=== PATIENT | female | born 1990 | race Caucasian/White ===

== ENCOUNTER 2023-09-19 03:34 | Emergency (ER) | payer OTHER, SELFPAY ==
[2023-09-19 03:36] VITALS: BP 123/84; PULSE 76; RESP 16; TEMP 36.2; O2SAT 96; BMI 25.8
--- NOTE | 2023-09-19 04:02 | ED.GENADULT ---
HPI - General Adult General Chief complaint: General Medical Stated complaint: Sinus infection/ swollen eye Time Seen by Provider: 09/19/23 04:02 Source: patient Mode of arrival: ambulatory Limitations: no limitations History of Present Illness HPI narrative: Patient been having sinus problem for last 1 week getting worse with increased headache and facial pain specially on bending since last night noticed redness of the left eyelid. No fever no chills Related Data Previous Rx's Medication Instructions Recorded amoxicillin 875 mg-potassium 1 tab PO BID #20 tabs 09/19/23 clavulanate 125 mg tablet Allergies Allergy/AdvReac Type Severity Reaction Status Date / Time No Known Allergies Allergy Verified 09/19/23 03:43 Review of Systems Review of Systems: Yes all other systems are reviewed and are negative [facility] Social History Social History Substance Use Type: Marijuana Physical Exam ED Vital Signs: Vital Signs - 24 hr 09/19/23 03:36 Temperature 97.1 F Pulse Rate 76 Respiratory Rate 16 Blood Pressure 123/84 Pulse Oximetry 96 Oxygen Delivery Method Room Air BMI result Body Mass Index 25.8 Appearance: Alert. Oriented X3. No acute distress. Eyes: Slight redness of left eyelid EOMI no pain with eyeball movement ENT: Pharynx normal. Oral Mucosa moist maxillary and frontal sinus tender Neck: Normal inspection. Neck supple. CVS: Normal heart rate and rhythm. Pulses normal. Respiratory: No respiratory distress. Equal air entry bilateral, no wheezing/rales/rhonchi Abdomen: Soft and nontender. Skin: Skin warm and dry. Neuro: Oriented X 3. Medical Decision Making Medical Decision Making MDM Narrative: Patient with sinusitis with slight redness of the left eyelid will prescribe oral Augmentin. Clinically which does not have any orbital cellulitis Differential Diagnosis Differential Diagnoses: The differential diagnosis associated with the presentation includes Sinusitis/orbital cellulitis/facial cellulitis Discharge Plan Discharge Clinical Impression: Acute bacterial rhinosinusitis Patient Disposition: Home, Self-Care Instructions: Rhinosinusitis (ED) Additional Instructions: Use steam vapor Antibiotic as prescribed Ibuprofen for pain Prescriptions: New amoxicillin-pot clavulanate 875-125 mg tablet 1 tab PO BID Qty: 20 0RF
[2023-09-19] MEDS: Amoxicillin/Potassium Clav 875 MG TABLET PO (04:19)
== END 2023-09-19 04:22 | disposition home or self-care (01) ==
LOC: HO.ED 04:16
PROVIDERS: Emergency Provider Internal Medicine
DX: J01.90 Acute sinusitis, unspecified (principal); B96.89 Other specified bacterial agents as the cause of diseases classified elsewhere
CPT/HCPCS: 99283; 99284

== ENCOUNTER 2024-06-07 11:31 | Outpatient (AMB) | payer OTHER, SELFPAY ==
--- NOTE | 2024-06-07 11:34 | MHC.OFFWIV ---
Intake Vital Signs 06/07/24 11:36 Height 5 ft 8 in Weight 185 lb BMI 28.1 BP 112/74 Blood Pressure Location Lt brachial Position Sitting Pulse 84 Pulse Source Pulse Oximeter Temp 98.3 F Temp Source Oral Pulse Oximetry (%) 98 Oxygen Delivery Method Room Air Intake Visit Reasons: Positive Covid Test- [phone] Intake Note: pt here c/o nasal congestion, minor cough, headache, body aches, fatigue. Positive covid test. This morning Patient Tobacco Use Status: Never used Tobacco Allergies No Known Allergies Allergy (Verified 06/07/24 11:34) Medication List - Last Reconciled 06/07/24 by Elsie Duran NP bupropion HCl XL 150 mg PO DAILY cholecalciferol (vitamin D3) 25 mcg PO DAILY Do you need a note to return to daycare/school/sports/work: Yes HPI Positive Covid Test- [phone] HPI Details This note is constructed using voice recognition software. While every effort has been made to ensure accuracy, fruit loader errors may have been included. The patient is a 33 year old female who presents to the clinic today with positive COVID tested today. She is complaining of nasal congestion, minor cough, headache, body aches, left-sided ear pain, and fatigue. She denies fever, chills shortness of breath. She would like to be treated with antiviral therapy if possible. [facility] Social History Patient Tobacco Use Status: Never used Tobacco Substance Use Type: Marijuana Review of Systems Const All systems reviewed & are unremarkable except as noted in HPI and below Physical Exam Vital Signs: Last Vital Signs Temp 98.3 F 06/07/24 11:36 Pulse 84 06/07/24 11:36 BP 112/74 06/07/24 11:36 Pulse Ox 98 06/07/24 11:36 Oxygen Delivery Method Room Air 06/07/24 11:36 BMI result Body Mass Index 28.1 Const General: cooperative, healthy appearing, comfortable and no acute distress Orientation/consciousness: patient oriented x3 Limitations: no limitations HEENT Head: Yes normal to inspection Ears: hearing grossly normal bilaterally, external ears normal, TM normal on the right and TM abnormal bulging and erythematous General nose exam: Normal external nose present, Normal nares present and No nasal discharge present Face and sinus: Yes normal facial exam and Yes sinuses nontender Mouth: Normal oral and palatal mucosa present and moist mucous membranes Throat: Yes tonsils normal, Yes uvula midline and Yes posterior oropharynx abnormal (Erythema) Eyes General: appearance normal, both eyes and all related structures Neck Neck: Yes normal visual inspection Resp Effort & Inspection: normal respiratory effort, able to speak in complete sentences, Actively coughing, no respiratory distress, not tachypneic, no tripod positioning and no use of accessory muscles Auscultation: clear to auscultation bilaterally Cardio Jugular venous distension: no JVD Rate: regular rate Rhythm: regular rhythm Heart sounds: S1 normal heart sound present, S2 normal heart sound present, no click, no gallops, no murmurs and no rubs Skin General skin exam: no rashes or lesions noted, elasticity normal and turgor normal Neuro General: patient oriented x3 Extrem General: Yes normal to inspection and Yes no clubbing, cyanosis or edema Assessment & Plan Assessment & Plan (1) Coronavirus infection: Code(s): B34.2 - Coronavirus infection, unspecified Plan: At home positive COVID test, discussed supportive measures including hydration and humidification. Reviewed antiviral therapy, patient requests this to be prescribed. Side effects discussed. Rx sent to requested pharmacy. Quarantine measures reviewed per CDC guidelines. (2) Otitis media: Code(s): H66.90 - Otitis media, unspecified, unspecified ear Qualifiers: Otitis media type: suppurative Chronicity: acute Laterality: left Recurrence: non-recurrent Spontaneous tympanic membrane rupture: without spontaneous rupture Qualified Code(s): H66.002 - Acute suppurative otitis media without spontaneous rupture of ear drum, left ear Plan: Antimicrobial therapy initiated for otitis media on top of coronavirus. Advised NSAIDs for pain relief. Follow up as needed with worsening or failure to resolve. Plan See above for full details and plan. Medications: New nirmatrelvir-ritonavir 300 mg (150 mg x 2)-100 mg (Paxlovid) take TWO 150 mg tablets of nirmatrelvir with ONE 100 mg tablet of ritonavir twice daily for 5 days PO. 30 ea 0RF amoxicillin-pot clavulanate 875-125 mg 1 tab PO BID 7 days 14 tabs 0RF Discontinued amoxicillin-pot clavulanate 875-125 mg Discontinued Reason: Patient Completed Course 1 tab PO BID 20 tabs 0RF Coding Level of Care Code Est Pt Level 3 (23054) Diagnoses Coronavirus infection B34.2 Non-recurrent acute suppurative otitis media of left ear without spontaneous rupture of tympanic membrane H66.002 Otitis media type: suppurative Chronicity: acute Laterality: left Recurrence: non-recurrent Spontaneous tympanic membrane rupture: without spontaneous rupture
[2024-06-07 11:36] VITALS: BP 112/74; PULSE 84; TEMP 36.8; O2SAT 98; BMI 28.1
== END 2024-06-07 12:50 | disposition home or self-care (01) ==
PROVIDERS: Visit Provider Registered Nurse
DX: B34.2 Coronavirus infection, unspecified (principal); H66.002 Acute suppurative otitis media without spontaneous rupture of ear drum, left ear
CPT/HCPCS: 99213

== ENCOUNTER 2025-03-21 10:47 | Outpatient (AMB) | payer OTHER, SELFPAY ==
--- NOTE | 2025-03-21 10:53 | A.OFFPC_ITS ---
Vital Signs 03/21/25 10:59 Height 5 ft 8 in Weight 200 lb 2 oz BMI 30.4 BP 96/72 Blood Pressure Location Rt brachial Position Sitting Respiration 14 Pulse 88 Pulse Source Pulse Oximeter Pulse Oximetry (%) 98 Oxygen Delivery Method Room Air Intake Visit Reasons: est care/referrals (plz keep appt) Intake Note: New patient visit. Requesting referral to dermatology. Hand surgeon for carpal tunnel. 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 Previously was seeing [facility]-insurance stopped covering. Then transferred to Dr Mathis BH: On wellbutrin 150mg daily. Previously on adderall but heightened anxiety. Would like to get neuropsych testing, perhaps autism evaluation. Has really bad PMDD. CTS: Using braces sleeping but continue to bother her throughout the day. This has been ongoing for years Allergic rhinitis. ROS see HPI PHYSICAL EXAM: GENERAL: Alert and oriented x 3. NAD EYES: EOMI. Anicteric. HENT: Moist mucous membranes. No scleral icterus. No cervical lymphadenopathy. LUNGS: Clear to auscultation bilaterally. CARDIOVASCULAR: Regular rate and rhythm. No murmur. No JVD. ABDOMEN: Soft, non-tender +bs EXTREMITIES: No edema. Non-tender. SKIN: No rashes or lesions. Warm. NEUROLOGIC: No focal neurological deficits. CN II-XII grossly intact PSYCHIATRIC: Cooperative. 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 1. Little interest or pleasure in doing things: several days 2. Feeling down, depressed, or hopeless: several days 3. Trouble falling or staying asleep, or sleeping too much: several days 4. Feeling tired or having little energy: several days 5. Poor appetite or overeating: several days 6. Feeling bad about yourself - or that you are a failure or have let yourself or your family down: more than half the days 7. Trouble concentrating on things, such as reading the newspaper or watching television: nearly every day 8. Moving or speaking so slowly that other people could have noticed. Or the opposite - being so fidgety or restless that you have been moving around a lot more than usual: several days 9. Thoughts that you would be better off or of hurting yourself in some way: several days Total score: 12 Source: Developed by Drs. Chucky Wade, Euefmia Henriquez, Bennett Delacruz and colleagues, with an educational [place] from [employer]. Thrive Questionnaire I am a: Patient What is your living situation today?: I have a steady place to live Within the past 12 months, did the food you bought not last and you didn't have the money to get more?: Never true Within the past 12 months, did you worry whether your food would run out before you got money to buy more?: Never true Do you have trouble paying for medicines?: No Do you have trouble getting transportation to medical appointments?: No Do you have trouble paying your heating and electricity bill?: No Do you have trouble taking care of your child, family member or friend?: No Do you have trouble with day-to-day activities such as bathing, preparing meals, shopping, managing finances, etc.?: No Are you currently unemployed and looking for a job?: No Are you interested in more education?: No Please select the resources that you would like help with: None Currently or been in a relationship where the following occur: I choose not to answer THRIVE Score: 0 AUDIT C Alcohol Use Questionnaire (AUDIT-C) 1. How often do you have a drink containing alcohol?: Monthly or less 2. How many drinks containing alcohol do you have on a typical day when you are drinking?: 1 or 2 3. How often do you have six or more drinks on one occasion?: Never Total Score: 1 GT-7 AMB Questionnaire GT-7 Feeling nervous, anxious, or on edge: 2 = More than half the days Not being able to stop or control worryin = More than half the days Worrying too much about different things: 2 = More than half the days Trouble relaxin = More than half the days Being so restless that it is hard to sit still: 2 = More than half the days Becoming easily annoyed or irritable: 2 = More than half the days Feeling afraid as if something awful might happen: 1 = Several days Total GT-7 score (0-4 normal; 5-9 mild; 10-14 moderate; 15-21 severe): 13 Source: Developed by Drs. Chucky Wade, Eufemia Henriquez, Bennett Delacruz and colleagues, with an educational [place] from [employer]. Physical exam (Primary Care) Vital Signs: Last Vital Signs Pulse 88 03/21/25 10:59 Resp 14 03/21/25 10:59 BP 96/72 03/21/25 10:59 Pulse Ox 98 03/21/25 10:59 Oxygen Delivery Method Room Air 03/21/25 10:59 BMI result Body Mass Index 30.4 Tobacco/Smoking Status: Tobacco use Status Tobacco use date assessed 03/21/25 03/21/25 11:03 Patient Tobacco Use Status Former Tobacco user 03/21/25 11:03 e-Cigarette/Vaping Use Never Used 03/21/25 11:03 PHQ-9: PHQ-9 Score PHQ-9: Total score 12 03/21/25 11:08 Currently or been in a relationship where the following occur: I choose not to answer Coding Level of Care Code New Pt Level 4 (62628) Diagnoses PMDD (premenstrual dysphoric disorder) F32.81 Bilateral carpal tunnel syndrome G56.03 Laterality: bilateral Anxiety F41.9 Screening for metabolic disorder Z13.228 Attention deficit R41.840 Assessment & Plan Assessment & Plan (1) PMDD (premenstrual dysphoric disorder): Code(s): F32.81 - Premenstrual dysphoric disorder Category: Medical (2) Carpal tunnel syndrome: Code(s): G56.00 - Carpal tunnel syndrome, unspecified upper limb Category: Medical Qualifiers: Laterality: bilateral Qualified Code(s): G56.03 - Carpal tunnel syndrome, bilateral upper limbs (3) Anxiety: Code(s): F41.9 - Anxiety disorder, unspecified Category: Medical (4) Screening for metabolic disorder: Code(s): Z13.228 - Encounter for screening for other metabolic disorders Category: Medical (5) Attention deficit: Code(s): R41.840 - Attention and concentration deficit Category: Medical Plan 34 yo to establish care BH-referral to psychiatry CTS-referral to orthopedics. They have placed orders for EMG Labs ordered Referral to dermatology for HS Orders: Orders Complete Blood Count Auto Diff 03/21/25 Elisabeth Higuera MD F32.81 - Premenstrual dysphoric disorder, F41.9 - Anxiety disorder, unspecified, L73.2 - Hidradenitis suppurativa, Z13.228 - Encounter for screening for other metabolic disorders Lyme IgG/IgM w/reflex to WB 03/21/25 Elisabeth Higuera MD F32.81 - Premenstrual dysphoric disorder, F41.9 - Anxiety disorder, unspecified, L73.2 - Hidradenitis suppurativa, Z13.228 - Encounter for screening for other metabolic disorders Vitamin B12 and Folate 03/21/25 Elisabeth Higuera MD F32.81 - Premenstrual dysphoric disorder, F41.9 - Anxiety disorder, unspecified NE nerve conduction velocity 03/21/25 HELEN Khan R20.0 - Anesthesia of skin, R20.2 - Paresthesia of skin Comprehensive Met. Panel 03/21/25 Elisabeth Higuera MD F32.81 - Premenstrual dysphoric disorder, F41.9 - Anxiety disorder, unspecified, L73.2 - Hidradenitis suppurativa, Z13.228 - Encounter for screening for other metabolic disorders Lipid Panel 03/21/25 Elisabeth Higuera MD F32.81 - Premenstrual dysphoric disorder, F41.9 - Anxiety disorder, unspecified, L73.2 - Hidradenitis suppurativa, Z13.228 - Encounter for screening for other metabolic disorders TSH reflex Free T4 03/21/25 Elisabeth Higuera MD F32.81 - Premenstrual dysphoric disorder, F41.9 - Anxiety disorder, unspecified, L73.2 - Hidradenitis suppurativa, Z13.228 - Encounter for screening for other metabolic disorders Vitamin D 25-OH (D2 and D3) 03/21/25 Elisabeth Higuera MD F41.9 - Anxiety disorder, unspecified, Z13.228 - Encounter for screening for other metabolic disorders NE electromyogram (EMG) 03/21/25 HELEN Khan R20.0 - Anesthesia of skin, R20.2 - Paresthesia of skin Referrals Hand Surgery Referral Elisabeth Higuera MD G56.00 - Carpal tunnel syndrome, unspecified upper limb Dermatology Referral Elisabeth Higuera MD L73.2 - Hidradenitis suppurativa 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
[2025-03-21 10:59] VITALS: BP 96/72; PULSE 88; RESP 14; O2SAT 98; BMI 30.4
--- OUTSIDE RECORDS SUMMARY | 2025-03-21 12:13 | XMS_ITS | Encounter Summary ---
Author Organization [facility] Address [address] [place] [id number] Phone Care Team Providers Care Personnel Arbitrator Name Role Phone Marian Samano MD Primary Care Provider [phone] Encounter Details Date Type Department Care Team (Late st Contact Info) Description 06/25/2017 Conversion Encounter [facility] [place] [address] [place] [address] Social History Tobacco Use Types Packs/Day Years Used Date Smoking Tobacco: Never Assessed Comments Unknown Sex and Gender Information Value Date Recorded Sex Assigned at Not on file Legal Sex Female 4:31 PM EDT Gender Identity Not on file Sexual Orientation Not on file documented as of this encounter Plan of Treatment Not on file documented as of this encounter Visit Diagnoses Not on filedocumented in this encounter Care Teams Personnel Arbitrator Relationship Specialty Start Date End Date Marian Samano MD [address] [place] [address] PCP - General 06/19/17 06/16/23 documented as of this encounter
--- OUTSIDE RECORDS SUMMARY | 2025-03-21 12:13 | XMS_ITS | Data Portability ---
Author Organization [place] - [facility], Main Office Address [address] [place] [id number] Assessment No assessment recorded. Plan of Treatment Reminders Order Date Submit Date Provider Last Modified By Organization Details Last Modified Time Details Appointments None recorded. Lab CBC w/ auto diff 2023 [facility], [address] [place] [address], [place] [address], [place], [address], 5 05:01:24 CMP, serum or plasma 2023 [facility], [address] [place] [address], [place] [address], [place], [address], 5 05:01:23 HbA1c (hemoglobi n A1c), blood 2023 [facility], [address] [place], [address], 5 05:01:23 CT + NG RNA, PCR, unspecifie d specimen 2023 [facility], [address] [place], [address], 5 05:01:23 RPR (rapid plasma reagin), serum 2023 [facility], [address] [place], [address], 5 05:01:23 HIV 1+2 AB + HIV 1 p24 Ag, qualitativ e immunoassa y, serum 2023 [facility], [address] [place], [address], 5 05:01:24 TSH, ultra-sens itive, serum 2023 [facility], [address] [place], [address], 5 05:01:24 HBsAg (hepatitis B surface Ag), serum 2023 [facility], [address] [place], [address], 5 05:01:23 hepatitis C virus Ab, serum 2023 [facility], [address] [place], [address], 5 05:01:23 gamma-glut amyl transferas e (ggt), serum 2023 [facility], [address] [place], [address], 5 05:01:24 lipid panel, serum 2023 [facility], [address] [place], [address], 5 05:01:23 microalbum in/creatin ine, mass ratio, urine 2023 [facility], [address] [place], [address], 5 05:01:24 vitamin D, 25-hydroxy , total, serum 2023 [facility], [address] [place], [address], 5 05:01:24 vitamin B12, serum 2023 [facility], [address] [facility], [place], [address], 5 05:01:24 H pylori urea breath test, co2 infrared 2023 [facility] Main [facility], [address] [facility], [address], [place], [address], 5 05:01:23 Referral dermatolog ist referral - Hidradenit is suppurativ a 2023 TAHMINA Gibbs MD, [address] [facility] [place], [address], 4 04:21:58 hand surgeon referral - B hand paresthesi as 2023 [facility], [address], [address], [place], [address], 4 17:12:18 neurologis t referral - ADHD 2023 reji Flores MD, [address] [facility], [address], [place], [address], 5 16:04:07 Procedures None recorded. Surgeries None recorded. Imaging None recorded. Medication Orders clindamyci n 1 % topical gel 2023 [facility][id number], [address] [place], [address], 4 13:36:06 mupirocin 2 % topical ointment 2023 [facility][id number], [address] [place], [address], 4 13:36:05 Wellbutrin XL 150 mg 24 hr tablet, extended release 2023 024 [facility] #[id number], [address] [facility] [place], [address], 13:36:05 Patient TargetsNo targets recorded. Patient InstructionsNo instructions recorded. 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 H idradenitis suppurativa Hidradenitis suppurativa Referring Physician: Mayo Velasquez, Internal Medicine, Encounter Date: 09/01/2024 Neurologist Referral for Att ention deficit hyperactivity disorder, predominantly inattentive type ADHD Referring Physician: Mayo Velasquez, Internal Medicine, Encounter Date: 09/01/2024 Hand Surgeon Referral for Pa resthesia of bilateral hands B hand paresthesias Referring Physician: Mayo Velasquez, Internal Medicine, Encounter Date: 09/01/2024 Problems Name Problem SNOMED Code Status Onset Date Resolution Date Notes Provider Name and Address Organization Details Recorded Time Attention deficit hyperactiv ity disorder, predominan tly inattentiv e type 37978617 Active 2023 Mayo Velasquez, [facility] [address], [place], [address] , [place], [employer] 13:29:33 Generalize d anxiety disorder 23995402 Active 2023 Mayo Velasquez DO [facility] [address], [place], [address] , [place], [employer] 13:29:34 Tattoo of skin 553287692687 Active 2023 Mayo Velasquez [address] [employer] [address], [place], [address] , [place] 4 13:32:45 Depression screening Active 2023 Mayo Velasquez DO [address], [place], [address] , [place], [employer] 13:32:47 Tobacco use cessation education Active 2023 Mayo Velasquez DO [address], [place], [address] , [employer] 13:32:49 Body mass index 25-29 - overweight 907375861 Active 2023 Mayo Velasquez, [address],[facility] [address], [place], [address] , [employer] 4 13:33:14 Paresthesi a of bilateral hands 450453413 Active 2023 Mayo Velasquez, [address] [facility] [address], [place], [address] , [employer] 13:38:37 Problem Notes None recorded. Procedures Surgical History Date Name Laterality Status Provider Name and Address Organization Details Recorded Time extraction of wisdom tooth completed VINCENT DUMONT [employer] 09/01/2024 12:11:20 Imaging Results None recorded. Procedure Notes None recorded. Medical Equipment None Reported. Allergies No known drug allergies Medications Name Sig Start Date Stop Date Status Note LastModified by Organization Details LastModified Time clindamycin 1 % topical gel APPLY THIN COAT TO AFFECTED AREA TWICE A DAY active Not Available Not Available No t Available mupirocin 2 % topical ointment APPLY A SMALL AMOUNT TO AFFECTED AREA 3 TIMES A DAY active Not Available Not Available No t Available amoxicillin 875 mg-potassium clavulanate 125 mg tablet TAKE 1 TABLET BY MOUTH TWICE A DAY FOR 7 DAYS active Not Available Not Available No t Available bupropion HCl XL 150 mg 24 hr tablet, extended release Take 1 tablet every day by oral route. active Not Available Not Available No t Available Paxlovid 300 mg (150 mg x 2)-100 mg tablets in a dose pack TAKE 2 TABLETS (NIRMATREL VIR) AND TAKE 1 TABLET (RITONAVIR ) BY MOUTH TWICE A DAY FOR 5 DAYS active Not Available Not Available No t Available Vitals Date Recorded Body height Respiratory rate Body temperature Heart rate Body mass index (BMI) Body weight Oxygen saturation Oxygen saturation in Arterial blood by Pulse oximetry Systolic blood pressure Diastolic blood pressure Provider Name and Address Organization Details Last Updated DateTime 4 172.72 cm 12 /min 98 [degF] 86 /min 29.8 kg/m2 04211.1 g 100 % 100 % 110 mm[Hg] 82 mm[Hg] VINCENT DUMONT [place] [facility] 12:05:52 Social History Question Answer Notes LastModified by Organizat ion Details LastModified Time Tobacco Smoking Status Former Smoker SHANNON VINCENT munoz [employer] 09/01/2024 12:09:04 Do You Have An Advance Directive? No [email or web address] Information n ot available 09/01/2024 If You Are , What Was Your Level Of Alcohol Consumption Prior To ? None [email or web address] Information not available 09/01/2024 Are You Blind Or Do You Have Difficulty Seeing? Yes [email or web address] Information n ot available 09/01/2024 Is Blood Transfusion Acceptable In An Emergency? Yes [email or web address] Information not available 09/01/2024 What Is Your Level Of Caffeine Consumption? Moderate [email or web address] Information not available 09/01/2024 What Type Of Central Service Supply Distributor Do You Use? None [email or web address] Information not available 09/01/2024 In The 14 Days Before Symptom Onset, Have You Had Close Contact With A Laboratory-confirm ed COVID-19 While That Case Was Ill? No [email or web address] Information n ot available 09/01/2024 In The 14 Days Before Symptom Onset, Have You Had Close Contact With A Person Who Is Under Investigation For COVID-19 While That Person Was Ill? No [email or web address] Information not available 09/01/2024 Have You Been To An Area Known To Be High Risk For COVID-19? No [email or web address] Information not available 09/01/2024 Are You Deaf Or Do You Have Serious Difficulty Hearing? No [email or web address] Information not available 09/01/2024 What Type Of Diet Are You Following? REGULAR [email or web address] Information n ot available 09/01/2024 Which Illicit Or Recreational Drugs Have You Used? MJ [email or web address] Information not available 09/01/2024 Have You Processed Blood Or Body Fluids From An Ebola Virus Disease Patient Without Appropriate PPE? No ocdtshiiee000 Information not available 09/01/2024 Do You Reside In Or Have You Traveled To An Area Where Ebola Virus Transmission Is Active? No yriuivrefy484 Information not available 09/01/2024 What Is The Highest Grade Or Level Of School You Have Completed Or The Highest Degree You Have Received? [id number] omxsnyopge908 Information not available 09/01/2024 Have There Been Any Changes To Your Family Or Social Situation? No [email or web address] Information no t available 09/01/2024 What Is The Fluoride Status Of Your Home? Unknown uedpatfsay593 Information not available 09/01/2024 Are There Any Guns Present In Your Home? No znfnbdfsje487 Information not available 09/01/2024 Have You Recently Or Are You Planning To Travel To An Area With Zika Virus? No Information not available 09/01/2024 Do You Use Insect Repellent Routinely? No ibafmvewnm404 Information not available 09/01/2024 Do You Have Any Bleeding Gums, Pain In Your Teeth And/or Gums, Gasp Between Your Teeth, Loose Teeth , Dry Mouth, Bad Taste Or Smell In Your Mouth Or Any Other Problems In Your Mouth? YES / NO No [email or web address] Information not available 09/01/2024 Have You Seen A Dentist In The Past 12 Months? YES / NO No mggnzpechy845 Information not available 09/01/2024 Do You Smoke? YES / NO Yes [email or web address] Informat ion not available 09/01/2024 What Was The Date Of Your Most Recent Tobacco Screening? 09/01/2024 pcuxbmqghq277 Information not available 09/01/2024 How Many Children Do You Have? 1 fxztorzsmu986 Information not available 09/01/2024 Do You Have Any Pets? Yes Cat [email or web address] Information not available 09/01/2024 What Is Your Relationship Status? Single [email or web address] Information not available 09/01/2024 Do You Use Your Seat Belt Or Car Seat Routinely? Yes qeechvawdd532 Information not available 09/01/2024 Are You Sexually Active? No lnosgsxjgv862 Information not available 09/01/2024 Do You Have Smoke And Carbon Monoxide Detectors In Your Home? Yes wsqnhiehms173 Information not available 09/01/2024 At What Age Did You Start Smoking Tobacco? 15 yvvlwcjtla351 Information not available 09/01/2024 Are You Passively Exposed To Smoke? No pschrenamg341 Information no t available 09/01/2024 How Much Tobacco Do You Smoke? No hxqerbmxld569 Information not available 09/01/2024 Do You Use Sunscreen Routinely? No [email or web address] Information not available 09/01/2024 Has Tobacco Cessation Counseling Been Provided? No xuutnrzxnj930 Information not available 09/01/2024 Have You Used IV Drugs? No vazpnumzdn906 Information not available 09/01/2024 Sex: Female Functional Status Question Answer Note LastModified by Organizat ion Details LastModified Time Do you use any illicit or recreational drugs? Yes Information not available 09/01/2024 Do you or have you ever used any other forms of tobacco or nicotine? No Information not available 09/01/2024 What is your level of alcohol consumption? None Information not available 09/01/2024 Are you currently employed? Yes fganzcfrlx521 Information not available 09/01/2024 Do you have difficulty walking or climbing stairs? No argkhbuvjm883 Information not available 09/01/2024 Do you have transportation difficulties? No Information not available 09/01/2024 Are you able to walk? YESWOREST qaudmloaan476 Information not available 09/01/2024 Do you have difficulty doing errands alone? No kocwmuymge471 Information not available 09/01/2024 Are you able to care for yourself? 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 No prnjhatmny853 Information not available 09/01/2024 What is your exercise level? Moderate zufzdlqqro912 Information not available 09/01/2024 Mental Status Question Answer Note LastModified by Organizat ion Details LastModified Time Do you feel stressed (tense, restless, nervous, or anxious, or unable to sleep at night)? XX2087-7 [email or web address] Information not available 09/01/2024 Do you have difficulty concentrating, remembering or making decisions? No [email or web address] Information no t available 09/01/2024 Family History Relationship Description Onset Age of this Age Resolved Age Notes LastModified by Organization Details LastModified Time Mother Diabetes mellitus 59 [email or web address] Not available 12:07:37 Mother Hypertensive disorder 59 [email or web address] Not available 12:07:56 Notes:Father passed 57 due t o pancreas cancer, also had bipolar disorder. Medical History Condition Response Coronary Artery Disease N Gout N Other N Blood Diseases N Kidney Stones N Hyperthyroidism N Blood Transfusion N Breast Cancer N Hypothyroidism N Depression N COPD N Lung Disease N Defects or Inherited Disease N Developmental or Behavioral Disorders N Breast Problem N Difficulty Swallowing N Anesthesia Complications N Meniere's disease N Anxiety Disorder Y Muscle, Joint, or Bone Problems N Obesity N Vision or Eye Problems N Arthritis N Polyps N Infertility N Mental Disorder N Cancer N Varicosities N Stroke N Endometriosis N Bladder or Kidney Problems N High Cholesterol N Liver Disease N Headaches N Fibromyalgia N Kidney Disease N Allergies/Hayfever N Heart Problems N Ear or Hearing Problems N Hospitalizations N Thyroid Problems N GI Problems N ADD/ADHD Y Skin Problems N Eating Disorder N Anemia N MRSA exposure N Constipation N Mental Illness N Ovarian Cancer N Diabetes N Bedwetting N Seizures/Epilepsy N Tuberculosis N AIDS/HIV N Congestive Heart Failure (CHF) N Eczema N Diverticulitis N Abuse/Domestic Violence N Asthma N Reflux/GERD N Hepatitis N Heart Disease N Pulmonary Embolism N Chronic Ear Infections N Pre-Eclampsia N Hypertension N Chicken Pox N Autism Spectrum Disorder (ASD) N Osteoporosis N Thrombophilias N Gynecological History Statement/Question Response Date of Last Mammogram Flow Light Date of LMP 08/12/2024 Duration of Flow (days) 4 Current Control Method IUD Age at Menarche 10 Age at First Child 25 Date of Last Colonoscopy Frequency of Cycle (Q days) 28 Most Recent Bone Density Date of Last Pap Smear Colonoscopy Obstetrics History GPAL:G 1 P 1 0 0 1 Type Value Full Term 1 Living 1 Total 1 Immunizations Vaccine Type Date Status Note Provider Joseph mello and Address Organization Details Recorded Time Tdap 04/21/2016 completed VINCENT munoz [place] - [employer], [id number] 08/31/2024 21:56:43 influenza, unspecified formulation 12/04/2016 completed VINCENT munoz [facility] 08/31/2024 21:57:06 influenza, unspecified formulation 09/30/2021 completed VINCENT munoz, [place] [facility] 08/31/2024 21:57:16 SARS-COV-2 (COVID-19) vaccine, UNSPECIFIED 02/01/2021 completed VINCENT DUMONT null, [facility] 08/31/2024 21:57:42 SARS-COV-2 (COVID-19) vaccine, UNSPECIFIED 02/22/2021 completed VINCENT DUMONT null, [facility] 08/31/2024 21:57:50 SARS-COV-2 (COVID-19) vaccine, UNSPECIFIED 09/30/2021 completed VINCENT munoz, [place] [facility] 08/31/2024 21:58:00 Past Encounters Encounter ID Performer Location Encounter Start Date Encounter Closed Date Diagnosis/Indication Diagnosis SNOMED-CT Code Diagnosis ICD10 Code Diagnosis Note [id number] Mayo Velasquez, Main Office [address] [place] [id number] 09/01/2024 11:52:58 09/01/2024 13:40:41 Attention deficit hyperactivity disorder, predominantly inattentive type 51449961 F90.0 Generalize d anxiety disorder 86851343 F41.1 Body mass index 25-29 - overweight 680580441 Z68.25 Adult [facility] th examination 541761148 Z00.01 cpe labs Active or passive immunization 547207033 Z23 Tobacco us e cessation education 758302884 Z71.6 Depression screening 171 107679 Z13.31 Tattoo of skin 178959808 1 02 L81.8 Hidradenit is suppurativa 51301417 L73.2 Paresthesi a of bilateral hands 065672027 R20.2 Health Concerns Section Related Observation LastModified by Organization Detai ls LastModified Time None Recorded Concern Status LastModified by Organization Details LastModified Time None Recorded Advance Directives Directive N: Payers Encounter Date Sequence Insurance Name Policy Number Policy Tineo Covered Member ID Tineo Member ID Guarantor Name 09/01/[address] [facility] - [facility] [place] ([place]) [id number] Araceli Avila [id number] 1 Araceli Avila Notes Date Note Type Note Provider Name and Address Organization Details Recorded Time 09/01/2024 text/html 33yo F, here today for a new patient office visit. 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 Pt c/o numbness of nadya hands x several years. Mayo Velasquez, DO [address] [facility],[address], [place], [address], [facility] - [facility] 09/01/2024 13:38:49 OBGyn Episode No OBEpisode recorded.
--- OUTSIDE RECORDS SUMMARY | 2025-03-21 12:13 | XMS_ITS | Encounter Summary ---
Author Organization [facility] Address [address] [place] [address] Phone Care Team Providers Care Financial Center Manager Name Role Phone Marian Samano MD Primary Care Provider Encounter Details Date Type Department Care Team (Late st Contact Info) Description 10/23/2015 Documentation [facility] [place] [facility] [address] [place] [address] Family Medicine, Physician [address] [place], [place] [phone] Social History Tobacco Use Types Packs/Day Years [...] on filedocumented in this encounter Care Teams Financial Center Manager Relationship Specialty Start Date End Date Marian Samano MD [address] [place] [address] [place] [address] PCP - General 06/19/17 06/16/23 documented as of this encounter
--- OUTSIDE RECORDS SUMMARY | 2025-03-21 12:13 | XMS_ITS | Clinical Summary ---
Author Organization [facility] Address [address] [place] [address] Phone Care Team Providers Care Steel Handler Name Role Phone Unavailable Primary Care Provider Unavailabl e Immunizations Immunization Administration Dates Next Due DTP 04/22/1994, 1,05/18/1989,1988,01/07/1989 Hep B, ped/adol 04/27/2002,12/02/2001,07/01/2001 Hib (PRP-T) 04/12/1991 MMR 11/28/1999,03/11/1990 OPV 04/22/1994, 1,03/04/1989,1988 Td (adult) (MBL), 2 Lf tetan us toxoid, PF, adsorbed 11/28/1999 Family History Relation Name Status Comments Father Alive Father: Allergi es Half-Brother Alive Half brother (P ): Alive and well Mother Alive Mother: Hyperte nsion Social History Tobacco Use Types Packs/Day Years Used Date Smoking Tobacco: Never Assessed Comments Unknown Sex and Gender Information Value Date Recorded Sex Assigned at Not on file Legal Sex Female 4:31 PM EDT Gender Identity Not on file Sexual Orientation Not on file Plan of Treatment Health Maintenance Due Date Last Done Comments DTaP,Tdap,and Td Vaccines (6 - Tdap) 11/29/1999 11/28/1999, 04/22/1994, 04/12/1991, Additional history exists Varicella Vaccines (1 of 2 - 13+ 2-dose series) 2001 Influenza Vaccines (#1) 2024 COVID-19 Vaccine ( - season) 2024 HIB Vaccines Completed 04/12/1991 IPV Vaccines Completed 04/22/1994, 02/1991, 03/04/1989, Additional history exists MMR Vaccines Completed 11/28/1999, 03/11/1990 Hepatitis B Vaccines Completed 04/27/2002, 12/02/2001, 07/01/2001 HPV Vaccines Aged Out No longer eligi ble based on patient's age to complete this topic Hepatitis A Vaccines Aged Out No long er eligible based on patient's age to complete this topic Men B Vaccine Aged Out No longer elig ible based on patient's age to complete this topic Meningococcal Vaccine Aged Out No sherry kandy eligible based on patient's age to complete this topic Pneumococcal Vaccine Aged Out No long er eligible based on patient's age to complete this topic
== END 2025-03-21 11:29 | disposition home or self-care (01) ==
LOC: HO.HMCFM 10:47
PROVIDERS: PCP Internal Medicine; Visit Provider Internal Medicine
DX: F32.81 Premenstrual dysphoric disorder (principal); G56.03 Carpal tunnel syndrome, bilateral upper limbs; F41.9 Anxiety disorder, unspecified; Z13.228 Encounter for screening for other metabolic disorders; R41.840 Attention and concentration deficit

== ENCOUNTER → 2025-03-21 10:47 | Outpatient (BNVA) | payer OTHER, SELFPAY | PROVIDERS: PCP Internal Medicine; Visit Provider Internal Medicine | DX: F32.81 Premenstrual dysphoric disorder (principal); G56.03 Carpal tunnel syndrome, bilateral upper limbs; F41.9 Anxiety disorder, unspecified | CPT/HCPCS: 99202 ==

== ENCOUNTER 2025-03-21 11:41 | Outpatient (REF) | payer OTHER, SELFPAY ==
--- OUTSIDE RECORDS SUMMARY | 2025-03-21 13:10 | XMS_ITS | Encounter Summary ---
Author Organization [facility] Address [address] [place] [address] Phone Care Team Providers Care Web Solutions Architect Name Role Phone Marian Samano MD Primary Care Provider Encounter Details Date Type Department Care Team (Late st Contact Info) Description 06/25/2017 Conversion Encounter [facility] [address] [place] [address] Social History Tobacco Use Types Packs/Day Years [...] on filedocumented in this encounter Care Teams Web Solutions Architect Relationship Specialty Start Date End Date Marian Samano MD [address] [place] [address] PCP - General 06/19/17 06/16/23 documented as of this encounter
--- OUTSIDE RECORDS SUMMARY | 2025-03-21 13:10 | XMS_ITS | Clinical Summary ---
Author Organization [facility] Address [address] [place] [address] Phone Care Team Providers Care Assembly Stock Supervisor Name Role Phone Unavailable Primary Care Provider [...]
--- OUTSIDE RECORDS SUMMARY | 2025-03-21 13:10 | XMS_ITS | Encounter Summary ---
Author Organization [facility] Address [address] [place] [address] Phone Care Team Providers Care Technology Program Manager Name Role Phone Marian Samano MD Primary Care Provider [phone] Encounter Details Date Type Department Care Team (Late st Contact Info) Description 10/23/2015 Documentation [facility] [place] Family Medicine [address] [place] [address] Family Medicine, Physician [address] [place], [place] [phone] Social History Tobacco Use Types Packs/Day Years [...] on filedocumented in this encounter Care Teams Technology Program Manager Relationship Specialty Start Date End Date Marian Samano MD [address] [place] [address] [place] [address] PCP - General 06/19/17 06/16/23 documented as of this encounter
[2025-03-21 14:14] LABS: MANUAL DIFF FLAG NO
[2025-03-21 14:20] LABS: Basophils Absolute Auto 0.1 X10*3/uL (0.0-0.2); Eosinophils Absolute Auto 0.2 X10*3/uL (0.0-0.4); Eosinophils Percent Auto 3.3 % (0-4); Hematocrit 42.2 % (37.0-47.0); Hemoglobin 14.5 g/dl (12.0-16.0); Imm Gran Abs Auto 0.01 X10*3/uL (0.00-0.03); Imm Gran Pct Auto 0.2 % (0.0-0.4); Lymphocytes Absolute Auto 2.7 X10*3/uL (1.2-4.9); Lymphocytes Percent Auto 43.2 % (20-40); Mean Corpuscular HGB Conc 34.4 g/dl (31.0-35.0); Mean Corpuscular Hemoglobin 31.6 pg (27.0-33.0); Mean Corpuscular Volume 91.9 fL (80.0-98.0); Mean Platelet Volume 9.7 fL (9.4-12.3); Monocytes Absolute Auto 0.5 X10*3/uL (0.1-1.2); Monocytes Percent Auto 7.3 % (2-11); Neutrophils Absolute Auto 2.8 x10*3/uL (2.0-8.3); Platelet Count 257 X10*3/uL (160-400); Red Blood Count 4.59 X10*6/uL (4.20-5.50); Red Cell Distribution Width 12.9 % (11.0-16.0); White Blood Count 6.3 X10*3/uL (4.8-10.8)
[2025-03-21 14:46] LABS: Alanine Aminotransferase 36 U/L (0-31); Albumin Level 4.4 g/dL (3.5-5.0); Alkaline Phosphatase 58 U/L (39-117); Anion Gap 9 (12-20); Aspartate Amino Transferase 32 U/L (5-31); Bilirubin Total 0.8 mg/dL (0.0-1.0); Blood Urea Nitrogen 8 mg/dL (9-16); Calcium 9.1 mg/dL (8.4-10.2); Carbon Dioxide 27 mmol/L (22-29); Chloride 108 mmol/L (96-108); Cholesterol 142 mg/dL (<200); Estimated Glomerular Filt Rate > 60; Glucose Random 82 mg/dL (60-115); HDL Cholesterol 47 mg/dL (>40); LDL Cholesterol Calculated 81 mg/dL (<100); Potassium 4.4 mmol/L (3.3-5.1); Sodium 140 mmol/L (135-145); Triglycerides 73 mg/dL (<150)
[2025-03-21 14:53] LABS: TSH reflex Free T4 0.73 uIU/mL (0.32-4.0)
[2025-03-21 15:19] LABS: Folate 10.4 ng/mL (> or = 4.0); Vitamin B12 549 pg/mL (200-900)
[2025-03-22 05:28] LABS: Lyme Abs Screen <0.90 index
[2025-03-26 21:28] LABS: Vitamin D 25-OH, D2 <4 ng/mL; Vitamin D 25-OH, D3 39 ng/mL; Vitamin D 25-OH, Total 39 ng/mL (30-100)
== END 2025-03-21 11:42 | disposition home or self-care (01) ==
LOC: HO.WFDLDS 11:41
PROVIDERS: Visit Provider Internal Medicine
DX: F41.9 Anxiety disorder, unspecified (principal); F32.81 Premenstrual dysphoric disorder; L73.2 Hidradenitis suppurativa; Z13.228 Encounter for screening for other metabolic disorders
CPT/HCPCS: 36415; 80053; 80061; 82306; 82607; 82746; 84443; 85025; 86617; 86618

== ENCOUNTER 2025-05-09 08:12 | Outpatient (REF) | payer OTHER, SELFPAY ==
--- NOTE | 2025-05-09 08:16 | EMG_ITS ---
FINDINGS: Bilateral median and ulnar motor and sensory studies were performed. Bilateral radial sensory studies were performed, and bilateral median and lateral antecubital brachial sensory studies were performed. Paraspinal muscles were tested with a needle. 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 Please see the attached neurophysiology report for detail MD CARL Alba/JOSE ANGEL / [id number] MTDD
--- OUTSIDE RECORDS SUMMARY | 2025-05-09 08:18 | XMS_ITS | Encounter Summary ---
Author Organization [facility] Address [address] [place] [address] Phone Care Team Providers Care Client Success Specialist Name Role Phone Marian Samano MD Primary Care Provider [phone] Encounter Details Date Type Department Care Team (Late st Contact Info) Description 06/25/2017 Conversion Encounter [facility] [place] [address] [place] [address] Social History Tobacco Use Types Packs/Day Years [...] on filedocumented in this encounter Care Teams Client Success Specialist Relationship Specialty Start Date End Date Marian Samano MD [address] [place] [address] PCP - General 06/19/17 06/16/23 documented as of this encounter
--- OUTSIDE RECORDS SUMMARY | 2025-05-09 08:18 | XMS_ITS | Data Portability ---
Author Organization [place] [facility], Main Office Address [address] [place] [id number] Assessment No assessment recorded. Plan of Treatment Reminders Order Date Submit Date Provider Last Modified By Organization Details Last Modified Time Details Appointments None recorded. Lab CBC w/ auto diff 2023 [facility] Main [facility], [address] [place] [address], [place] [address], [place], [address], 5 05:01:24 CMP, serum or plasma 2023 [facility] Main [facility], [address] [place] [address], [place] [address], [place], [address], 5 05:01:23 HbA1c (hemoglobi n A1c), blood 2023 [facility], [address] [place], [address], 5 05:01:23 CT + NG RNA, PCR, unspecifie d specimen 2023 024 [facility], [address] [place], [address], 5 05:01:23 RPR (rapid plasma reagin), serum 2023 [facility], [address] [place], [address], 5 05:01:23 HIV 1+2 AB + HIV 1 p24 Ag, qualitativ e immunoassa y, serum 2023 [facility], [address] [place] [facility], [address], 5 05:01:24 TSH, ultra-sens itive, serum 2023 [facility], [address] [place], [address], 5 05:01:24 HBsAg (hepatitis B surface Ag), serum 2023 [facility], [address] [place], [address], 5 05:01:23 hepatitis C virus Ab, serum 2023 [facility], [address] [place], [address], 5 05:01:23 gamma-glut amyl transferas e (ggt), serum 2023 [facility], [address] [place], [address], 5 05:01:24 lipid panel, serum 2023 [facility], [address] [place], [address], 5 05:01:23 microalbum in/creatin ine, mass ratio, urine 2023 [facility], [address] [place], [address], 5 05:01:24 vitamin D, 25-hydroxy , total, serum 2023 [facility], [address] [place], [address], 5 05:01:24 vitamin B12, serum 2023 [facility], [address] [facility], [place], [address], 5 05:01:24 H pylori urea breath test, co2 infrared 2023 [facility] Main Office, [address] [facility], [address], [place], [address], 5 05:01:23 Referral dermatolog ist referral - Hidradenit is suppurativ a 2023 TAHMINA Gibbs MD, [address] [facility] [place], [address], 5 05:00:53 hand surgeon referral - B hand paresthesi as 2023 [facility], [address], [address], [place], [address], 4 17:12:18 neurologis t referral - ADHD 2023 reji Flores MD, [address] [facility], [address], [place], [address], 5 16:04:07 Procedures None recorded. Surgeries None recorded. Imaging None recorded. Medication Orders clindamyci n 1 % topical gel 2023 [facility][id number], [address] [place], [address], 4 13:36:06 mupirocin 2 % topical ointment [address] [id number], [address] [place], [address], 4 13:36:05 Wellbutrin XL 150 mg 24 hr tablet, extended release [address] [facility] #[id number], [address] [facility] [place], [address], 13:36:05 Patient TargetsNo targets recorded. Patient InstructionsNo instructions recorded. 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 H idradenitis suppurativa Hidradenitis suppurativa [...] ity disorder, predominan tly inattentiv e type 45058309 Active 2023 Mayo Velasquez, DO [address] [place], [place], [address] , [employer] 13:29:33 Generalize d anxiety disorder 46544254 Active 2023 Mayo Velasquez DO [address] [place],[address], [place], [address] , [employer] 13:29:34 Tattoo of skin 085956405790 Active 2023 Mayo Velasquez [address] [place],[address], [place], [address] , [employer] 13:32:45 Depression screening Active 2023 Mayo Velasquez DO [address] [place],[address], [place], [address] , [employer] 13:32:47 Tobacco use cessation education Active 2023 Mayo Velasquez [address] [place], [place], [address] , [employer] 13:32:49 Body mass index 25-29 - overweight 164972815 Active 2023 Mayo Velasquez, [address],[facility] [place], [place], [address] , [employer] 4 13:33:14 Paresthesi a of bilateral hands 063544945 Active 2023 Mayo Velasquez, [address],[facility] [place], [place], [address] , [employer] 13:38:37 Problem Notes None recorded. Procedures Surgical History Date Name Laterality Status Provider Name and Address Organization Details Recorded Time extraction of wisdom tooth completed VINCENT DUMONT [facility] 09/01/2024 12:11:20 Imaging Results None recorded. Procedure Notes None recorded. Medical Equipment None Reported. Allergies No known drug allergies Medications Name Sig Start Date Stop Date Status Note LastModified by Organization Details LastModified Time Prescription - Renewal active Not Available Not Available Not Available clindamycin 1 % topical gel APPLY THIN [...] in a dose pack TAKE 2 TABLETS (NIRMATRE LVIR) AND TAKE 1 TABLET (RITONAVI R) BY MOUTH TWICE A DAY FOR 5 [...] /min 98 [degF] 86 /min 29.8 kg/m2 10290.1 g 100 % 100 % 110 mm[Hg] 82 mm[Hg] VINCENT TIM [facility] 12:05:52 Social History Question Answer Notes LastModified by Organizat ion Details LastModified Time Tobacco Smoking Status Former Smoker SHANNON KAUR TIM munoz [facility] 09/01/2024 12:09:04 Do You Have An Advance Directive? No [email or web address] Information n ot available 09/01/2024 If You Are , What Was Your Level Of Alcohol Consumption Prior To ? None [email or web address] Information not available 09/01/2024 Are You Blind Or Do You Have Difficulty Seeing? Yes [email or web address] Information n ot available 09/01/2024 Is Blood Transfusion Acceptable In An Emergency? Yes [email or web address] Information not available 09/01/2024 What Is Your Level Of Caffeine Consumption? Moderate ubxpigvcaz822 Information not available 09/01/2024 What Type Of Before And After School Daycare Worker Do You Use? None [email or web address] Information not available 09/01/2024 In The 14 Days Before Symptom Onset, Have You Had Close Contact With A Laboratory-confirm ed COVID-19 While That Case Was Ill? No [email or web address] Information n ot available 09/01/2024 In The 14 Days Before Symptom Onset, Have You Had Close Contact With A Person Who Is Under Investigation For COVID-19 While That Person Was Ill? No [email or web address] Information not available 09/01/2024 Have You Been To An Area Known To Be High Risk For COVID-19? No [email or web address] Information not available 09/01/2024 Are You Deaf Or Do You Have Serious Difficulty Hearing? No [email or web address] Information not available 09/01/2024 What Type Of Diet Are You Following? REGULAR lienfrddgu188 Information n ot available 09/01/2024 Which Illicit Or Recreational Drugs Have You Used? MJ bicnxglbxo794 Information not available 09/01/2024 Have You Processed Blood Or Body Fluids From An Ebola Virus Disease Patient Without Appropriate PPE? No yyxqotndua191 Information not available 09/01/2024 Do You Reside In Or Have You Traveled To An Area Where Ebola Virus Transmission Is Active? No uoupfeaswk477 Information not available 09/01/2024 What Is The Highest Grade Or Level Of School You Have Completed Or The Highest Degree You Have Received? LD99072-4 [email or web address] Information not available 09/01/2024 Have There Been Any Changes To Your Family Or Social Situation? No pytxklrhxm946 Information no t available 09/01/2024 What Is The Fluoride Status Of Your Home? Unknown elazdmmjqg619 Information not available 09/01/2024 Are There Any Guns Present In Your Home? No [email or web address] Information not available 09/01/2024 Have You Recently Or Are You Planning To Travel To An Area With Zika Virus? No Information not available 09/01/2024 Do You Use Insect Repellent Routinely? No bgxdwicrct920 Information not available 09/01/2024 Do You Have Any Bleeding Gums, Pain In Your Teeth And/or Gums, Gasp Between Your Teeth, Loose Teeth , Dry Mouth, Bad Taste Or Smell In Your Mouth Or Any Other Problems In Your Mouth? YES / NO No awkjgkdeof686 Information not available 09/01/2024 Have You Seen A Dentist In The Past 12 Months? YES / NO No gzpvqwomwx752 Information not available 09/01/2024 Do You Smoke? YES / NO Yes [email or web address] Informat ion not available 09/01/2024 What Was The Date Of Your Most Recent Tobacco Screening? 09/01/2024 istjpbwznt115 Information not available 09/01/2024 How Many Children Do You Have? 1 fumkrczxtj605 Information not available 09/01/2024 Do You Have Any Pets? Yes Cat oubkqgvlhk284 Information not available 09/01/2024 What Is Your Relationship Status? Single vuatqzxgcy360 Information not available 09/01/2024 Do You Use Your Seat Belt Or Car Seat Routinely? Yes vbarlrjbpv652 Information not available 09/01/2024 Are You Sexually Active? No yqpddmfdkn191 Information not available 09/01/2024 Do You Have Smoke And Carbon Monoxide Detectors In Your Home? Yes haapsagzzn705 Information not available 09/01/2024 At What Age Did You Start Smoking Tobacco? 15 rbvuqhgtdg452 Information not available 09/01/2024 Are You Passively Exposed To Smoke? No thfpxgbhhu223 Information no t available 09/01/2024 How Much Tobacco Do You Smoke? No psrhaxmped964 Information not available 09/01/2024 Do You Use Sunscreen Routinely? No prqqnikxja605 Information not available 09/01/2024 Has Tobacco Cessation Counseling Been Provided? No wwouyitpvp571 Information not available 09/01/2024 Have You Used IV Drugs? No qyfqnsttbl604 Information not available 09/01/2024 Do You Have Difficulty Walking Or Climbing Stairs? No hnpykvpgmn299 Information not available 09/01/2024 Sex: Female Functional Status Question Answer Note LastModified by Organizat ion Details LastModified Time Do you use any illicit or recreational drugs? Yes crqafhjbhd363 Information not available 09/01/2024 Do you or have you ever used any other forms of tobacco or nicotine? No ngcdnemsim094 Information not available 09/01/2024 What is your level of alcohol consumption? None wihkflsdgu707 Information not available 09/01/2024 Are you currently employed? Yes ibfydquyiu369 Information not available 09/01/2024 Do you have transportation difficulties? No ejnsdivdjt572 Information not available 09/01/2024 Are you able to walk? YESWOREST bflqddnfro967 Information not available 09/01/2024 Do you have difficulty doing errands alone? No bdlethkxpv268 Information not available 09/01/2024 Are you able to care for yourself? 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 No uzqjrnktjd432 Information not available 09/01/2024 What is your exercise level? Moderate urzlkgvxkq279 Information not available 09/01/2024 Mental Status Question Answer Note LastModified by Organizat ion Details LastModified Time Do you feel stressed (tense, restless, nervous, or anxious, or unable to sleep at night)? DT8333-3 wpgwelmcqq848 Information not available 09/01/2024 Do you have difficulty concentrating, remembering or making decisions? No kyadosbjgq459 Information no t available 09/01/2024 Family History Relationship Description Onset Age of this Age Resolved Age Notes LastModified by Organization Details LastModified Time Mother Diabetes mellitus 59 [email or web address] Not available 12:07:37 Mother Hypertensive disorder 59 [email or web address] Not available 12:07:56 Notes:Father passed 57 due t o pancreas cancer, also had bipolar disorder. Medical History Condition Response Coronary Artery Disease N Other N Gout N Kidney Stones N Blood Diseases N Hyperthyroidism N Breast Cancer N Blood Transfusion N Hypothyroidism N Lung Disease N COPD N Depression N Defects or Inherited Disease N Developmental or Behavioral Disorders N Breast Problem N Difficulty Swallowing N Anesthesia Complications N Anxiety Disorder Y Meniere's disease N Muscle, Joint, or Bone Problems N Obesity N Vision or Eye Problems N Arthritis N Infertility N Polyps N Mental Disorder N Cancer N Stroke N Varicosities N Endometriosis N Bladder or Kidney Problems N High Cholesterol N Liver Disease N Fibromyalgia N Headaches N Kidney Disease N Allergies/Hayfever N Heart [...] Tdap 04/21/2016 completed VINCENT munoz [place] - [facility] 08/31/2024 21:56:43 influenza, unspecified formulation 12/04/2016 completed VINCENT munoz, [facility] 08/31/2024 21:57:06 influenza, unspecified formulation 09/30/2021 completed VINCENT DUMONT null, [facility] 08/31/2024 21:57:16 SARS-COV-2 (COVID-19) vaccine, UNSPECIFIED 02/01/2021 completed VINCENT DUMONT null, [facility] 08/31/2024 21:57:42 SARS-COV-2 (COVID-19) vaccine, UNSPECIFIED 02/22/2021 completed VINCENT DUMONT null, [facility] 08/31/2024 21:57:50 SARS-COV-2 (COVID-19) vaccine, UNSPECIFIED 09/30/2021 completed VINCENT DUMONT null, [facility] 08/31/2024 21:58:00 Past Encounters Encounter ID Performer Location Encounter Start Date Encounter Closed Date Diagnosis/Indication Diagnosis SNOMED-CT Code Diagnosis ICD10 Code Diagnosis Note [id number] Mayo Velasquez, Main Office [address] [place] [phone] 09/01/2024 11:52:58 09/01/2024 13:40:41 Attention deficit hyperactivity disorder, predominantly inattentive type 31369975 F90.0 Generalize d anxiety disorder 59924993 F41.1 Body mass index 25-29 - overweight 568826821 Z68.25 Adult heal th examination 988976171 Z00.01 cpe labs Active or passive immunization 384308020 Z23 Tobacco us e cessation education 715643517 Z71.6 Depression screening 171 872033 Z13.31 Tattoo of skin 901657250 1 02 L81.8 Hidradenit is suppurativa 37756533 L73.2 Paresthesi a of bilateral hands 819801673 R20.2 Health Concerns Section Related Observation LastModified by Organization Detai ls LastModified Time None Recorded Concern Status LastModified by Organization Details LastModified Time None Recorded Advance Directives Directive N: Payers Insurance Date Sequence Insurance Name Policy Number Policy Tineo Covered Member ID Tineo Member ID Guarantor Name 12/21/2024 1 [employer] [facility] - [place] (HMO) [id number] Araceli Avila [id number] 1 Araceli Avila Notes Date Note Type Note Provider Name and Address Organization Details Recorded Time 09/01/2024 text/html 33yo F, here today for a new patient office visit. PMH- ADHD, AnxietyPSH- wisdom tooth extractionAller gies- NKDAMeds- On chartVaccines- On chart social Hx- lives with son , MJ smoker, non drinker, non drug user, works @ - [employer] Mammo- NonePap- 2020BD- NoneColon- None specialists- None concerns-Pt states she wants labs done. Pt c/o numbness of nadya hands x several years. Mayo Velasquez, DO [address] [facility],[address], [place], [address], [facility] 09/01/2024 13:38:49 OBGyn Episode No OBEpisode recorded.
== END 2025-05-09 08:13 | disposition home or self-care (01) ==
LOC: HO.NEURO 08:12
PROVIDERS: PCP Internal Medicine
DX: R20.0 Anesthesia of skin (principal); R20.2 Paresthesia of skin; G56.13 Other lesions of median nerve, bilateral upper limbs
CPT/HCPCS: 95886; 95913

== ENCOUNTER → 2025-05-09 08:16 | Outpatient (BNV) | payer OTHER, SELFPAY | PROVIDERS: PCP Internal Medicine; Visit Provider Psychiatry & Neurology Neurology | DX: G56.03 Carpal tunnel syndrome, bilateral upper limbs (principal) | CPT/HCPCS: 95886; 95913 ==

== ENCOUNTER 2025-06-08 09:39 | Outpatient (REF) | payer OTHER, SELFPAY | END 2025-06-08 09:40 | disposition home or self-care (01) | LOC: HO.LNP 09:39 | PROVIDERS: PCP Internal Medicine; Visit Provider Obstetrics & Gynecology | DX: Z01.419 Encounter for gynecological examination (general) (routine) without abnormal findings (principal); N64.3 Galactorrhea not associated with childbirth; Z11.51 Encounter for screening for human papillomavirus (HPV); Z97.5 Presence of (intrauterine) contraceptive device | CPT/HCPCS: 87626; 88175; 99385 ==

== ENCOUNTER 2025-06-08 09:39 | Outpatient (AMB) | payer OTHER, SELFPAY ==
--- NOTE | 2025-06-08 09:50 | A.OFFVIS_ITS ---
Vital Signs 06/08/25 10:01 Height 5 ft 8 in Weight 195 lb BMI 29.6 BP 108/64 Intake Visit Reasons: Annual exam Intake Note: Per patient, last pap smear 10 years ago, IUD also placed 5 years ago. Resource Specialist: Resource Specialist Present (TANNER Griffin ) Accompanied by: Self / Same As Patient Allergies No Known Allergies Allergy (Verified 06/08/25 09:58) Is last menstrual period known: No Post menopausal: No Patient : No HPI Comments Details: Presenting for annual exam. 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 Current occupational exposures/hazards: No Cognitive needs: No Hearing needs: No Vision needs: Yes (contacts, and reading glasses) Female Reproductive History Menstrual Age of Menarche: 10 Total pregnancies: 1 Full term: 1 History of abnormal pap smear: Yes (HPV) Review of Systems Const All systems reviewed & are unremarkable except as noted in HPI and below Card Reports as per HPI Resp Reports as per HPI GI Reports as per HPI and Reports no additional complaints Reports as per HPI Physical Exam Vital Signs: Last Vital Signs BP 108/64 06/08/25 10:01 BMI result Body Mass Index 29.6 Const General: cooperative, healthy appearing and comfortable Chest Chest palpation & inspection: normal inspection of the chest and normal palpation of entire chest wall Breast/axilla inspection: normal inspection of the breasts and normal inspection of the axillae Breast/axilla palpation: normal palpation of the breasts, normal palpation of the axillae and no axillary lymphadenopathy Resp Effort & Inspection: normal respiratory effort Auscultation: clear to auscultation bilaterally Percussion: percussion normal Cardio Palpation: normal PMI Rate: regular rate Rhythm: regular rhythm Heart sounds: no murmurs and no rubs Peripheral pulses: Peripheral pulses 2+ throughout GI Inspection: Yes normal to inspection Palpation (GI): Soft to palpation, nontender, no guarding, not rigid and No hepatosplenomegaly present Percussion: Yes normal to percussion Auscultation: normal bowel sounds Rectal Exam - Female: deferred General: Yes bladder normal to palpation External Female Exam: No lesion Speculum Exam - Vagina: normal appearance of the vagina, normal palpation, normal vaginal discharge and not erythematous Speculum Exam - Cervix: normal appearance of the cervix and normal palpation Bimanual exam- vagina & uterus: normal bimanual exam, normal palpation, uterine size normal, bladder normal to palpation, consistency normal and normal palpation Bimanual Exam- Adnexa, other: normal adnexae, no masses and no tenderness Assessment & Plan Assessment & Plan (1) Well woman exam: Code(s): Z01.419 - Encounter for gynecological examination (general) (routine) without abnormal findings Category: Medical Plan: Cotesting done. Counseled the patient about the recommended dietary allowance of 1000 mg of Calcium & 600 IU of vitamin D. The patient was instructed to perform monthly self-breast exams and to schedule an annual exam in a year; All questions answered and the patient verbalized understanding. Instructed the patient to schedule annual exam in a year (2) Galactorrhea: Code(s): N64.3 - Galactorrhea not associated with childbirth Category: Medical Plan: TSH/prolactin ordered, instructions given the patient to schedule follow-up appointment Orders: Orders Prolactin Today N64.3 - Galactorrhea not associated with childbirth Thyroid Stimulating Hormone Today N64.3 - Galactorrhea not associated with childbirth Coding Level of Care Code New Pt Prev Care 18-39yr([id number] Diagnoses Well woman exam Z01.419 Galactorrhea N64.3
[2025-06-08 10:01] VITALS: BP 108/64; BMI 29.6
--- OUTSIDE RECORDS SUMMARY | 2025-06-08 10:05 | XMS_ITS | Encounter Summary ---
Author Organization [facility] Address [address] [place] [phone] Phone Care Team Providers Care Information Assoc Name Role Phone Marian Samano MD Primary Care Provider [phone] Encounter Details Date Type Department Care Team (Late st Contact Info) Description 06/25/2017 Conversion Encounter [facility] [place] [address] [place] [address] Social History Tobacco Use Types Packs/Day Years [...] on filedocumented in this encounter Care Teams Information Assoc Relationship Specialty Start Date End Date Marian Samano MD [address] [place] [address] PCP - General 06/19/17 06/16/23 documented as of this encounter
== END 2025-06-08 10:27 | disposition home or self-care (01) ==
PROVIDERS: PCP Internal Medicine; Visit Provider Obstetrics & Gynecology
DX: Z01.419 Encounter for gynecological examination (general) (routine) without abnormal findings (principal); N64.3 Galactorrhea not associated with childbirth
CPT/HCPCS: 99385; 99459

== ENCOUNTER 2025-06-09 09:13 | Outpatient (AMB) | payer OTHER, SELFPAY ==
[2025-06-09 09:16] VITALS: BMI 29.6
--- NOTE | 2025-06-09 09:16 | MHC.OFFVIS ---
Vital Signs 06/09/25 09:16 Height 5 ft 8 in Weight 195 lb BMI 29.6 Intake Visit Reasons: New Pt - B/L Hand Pain, Numbness & Tingling Intake Note: Araceli is a 34 year old left hand dominant female who presents today as a new patient with complaints of bilateral hand pain & numbness and tingling, left greater than right. Patient reports her symptoms have been ongoing for about 10 years, worsening for the past year. Numbness and tingling are worse on bilateral small fingers. She has been using braces at bedtime which are helpful. She states pain is primarily on both of her wrists, left greater than right. 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 Patient reports radial head fracture about 13 years ago. 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 Allergies No Known Allergies Allergy (Verified 06/09/25 09:18) HPI HPI New Pt - B/L Hand Pain, Numbness & Tingling: Details: Araceli is a 34 year old left hand dominant female who presents today as a new patient with complaints of bilateral hand pain & numbness and tingling, left greater than right. Patient reports her symptoms have been ongoing for about 10 years, worsening for the past year. Numbness and tingling are worse on bilateral small fingers. She has been using braces at bedtime which are helpful. She states pain is primarily on both of her wrists, left greater than right. 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 Patient reports radial head fracture about 13 years ago. 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 Good APB muscle firing and good finger cross. Vascular: Capillary refill brisk. ROM: Patient can make a fist and extend all their digits. Skin: No lacerations or abrasions noted. General: No ecchymosis. No erythema or evidence of infection. Assessment & Plan Assessment & Plan (1) Carpal tunnel syndrome: Code(s): G56.00 - Carpal tunnel syndrome, unspecified upper limb Category: Medical Qualifiers: Laterality: bilateral Qualified Code(s): G56.03 - Carpal tunnel syndrome, bilateral upper limbs Plan 1. Carpal tunnel syndrome, left Symptoms intermittent, daily, worse at night I educated the patient about the condition. I discussed both operative and nonoperative treatment options. The patient would like to proceed with surgery. The risks and benefits of operative treatment were discussed with the patient and the patient wishes to proceed with surgery. These risks include, but are not limited to, risk of damage to blood vessels, nerves, tendons, infection, recurrence, incomplete relief of preoperative symptoms, persistent pain, possible need for further surgery, and the risks associated with regional blocks and/or anesthesia. Plan is to take the patient to the operating room at some point in the next few weeks for the following procedures: 1. Left carpal tunnel release under local All of the preoperative paperwork including the consent was discussed today. All of the patient's questions were answered in the clinic today. The patient understands that they will be in contact with our surgical scrub technologist to discuss scheduling their procedure. Patient denies diabetes, blood thinners, asthma, heart issues, lung issues, kidney issues, or current smoking. 2. Carpal tunnel syndrome, right Intermittent, daily, worse at night Patient would like to proceed with operative intervention of the left prior to intervention of the right Patient is educated that at her postop visit, if she is recovering well, we can sign up for right-sided surgical intervention Patient is amenable to this plan Coding Level of Care Code New Pt Level 4 (04354) Diagnoses Bilateral carpal tunnel syndrome G56.03 Laterality: bilateral
--- OUTSIDE RECORDS SUMMARY | 2025-06-09 09:28 | XMS_ITS | Encounter Summary ---
Author Organization [facility] Address [address] [place] [phone] Phone Care Team Providers Care Medical File Clerk Name Role Phone Marian Samano MD Primary Care Provider [phone] Encounter Details Date Type Department Care Team (Late st Contact Info) Description 06/25/2017 Conversion Encounter [facility] [place] [address] [place] [address] Social History Tobacco Use Types Packs/Day Years [...] on filedocumented in this encounter Care Teams Medical File Clerk Relationship Specialty Start Date End Date Marian Samano MD [address] [place] [address] PCP - General 06/19/17 06/16/23 documented as of this encounter
== END 2025-06-09 09:59 | disposition home or self-care (01) ==
LOC: HO.HOS 09:14
PROVIDERS: PCP Internal Medicine
DX: G56.03 Carpal tunnel syndrome, bilateral upper limbs (principal)
CPT/HCPCS: 99204

== ENCOUNTER → 2025-06-09 09:13 | Outpatient (BNVA) | payer OTHER, SELFPAY | PROVIDERS: PCP Internal Medicine | DX: G56.03 Carpal tunnel syndrome, bilateral upper limbs (principal); R20.0 Anesthesia of skin; R20.2 Paresthesia of skin | CPT/HCPCS: 99202 ==

== ENCOUNTER 2025-06-19 20:58 | Emergency (ER) | payer OTHER, SELFPAY ==
--- NOTE | ~2025-06-19 | XR_ITS ---
CLINICAL HISTORY: pain swelling s p fall 3 view left ankle Comparison: None provided Findings: Acute mildly displaced avulsion fracture of the medial malleolar tip. No significant arthritic change or erosions. No ankle effusion. No radiopaque foreign body. Moderate soft tissue swelling along the lateral malleolus. IMPRESSION: Acute mildly displaced avulsion fracture of the medial malleolar tip. This document has been electronically signed by: Brittany Caldera MD on 06/19/2025 22:03:16
[2025-06-19 21:03] VITALS: BP 120/69; PULSE 92; RESP 18; TEMP 36.9; O2SAT 96; BMI 31.2
--- OUTSIDE RECORDS SUMMARY | 2025-06-19 22:01 | XMS_ITS | Encounter Summary ---
Author Organization [facility] Address [address] [place] [phone] Phone Care Team Providers Care Diamond Sizer And Grader Name Role Phone Marian Samano MD Primary Care Provider [phone] Encounter Details Date Type Department Care Team (Late st Contact Info) Description 06/25/2017 Conversion Encounter [facility] [place] [address] [place] [address] Social History Tobacco Use Types Packs/Day Years [...] on filedocumented in this encounter Care Teams Diamond Sizer And Grader Relationship Specialty Start Date End Date Marian Samano MD [address] [place] [address] PCP - General 06/19/17 06/16/23 documented as of this encounter
--- NOTE | 2025-06-19 22:59 | ED.LOWEXIN ---
HPI - Extremity Injury (Lower) General Chief Complaint: Extremity Injury, Lower Stated Complaint: ? left ankle sprain Time Seen by Provider: 06/19/25 22:48 Source: patient Mode of arrival: ambulatory Limitations: no limitations History of Present Illness ED Provider: HPI Narrative: Patient apparently was doing double round horse kick and taekwondo when landed complaining of pain in the left ankle with swelling of the lateral malleolus no other injuries Related Data Home Medications ?Medication ?Instructions ?Recorded ?Confirmed bupropion HCl 150 mg 24 hr tablet, 150 mg PO DAILY 06/07/24 06/07/24 extended release cholecalciferol (vitamin D3) 25 25 mcg PO DAILY 06/07/24 06/07/24 mcg (1,000 unit) capsule loratadine 10 mg tablet (Claritin) 10 mg PO DAILY 03/21/25 Previous Rx's ?Medication ?Instructions ?Recorded clindamycin phosphate 1 % topical 1 appl topical DAILY #60 grams 03/21/25 gel mupirocin 2 % topical ointment 1 appl topical BID hidradenitis 03/21/25 #50 grams sertraline 50 mg tablet 50 mg PO DAILY #90 tabs 03/21/25 ibuprofen 600 mg tablet 600 mg PO Q6H PRN fever or pain 06/19/25 #30 tabs Allergies Allergy/AdvReac Type Severity Reaction Status Date / Time No Known Allergies Allergy Verified 06/19/25 21:04 Review of Systems Review of Systems: Yes all other systems are reviewed and are negative PMFSH Past Medical History Surgical History H/O LEEP Family History Family History Father Pancreatic cancer Social History Social History Housing: House Patient Tobacco Use Status: Former Tobacco user Years Smoked: 3-4 months socially e-Cigarette/Vaping Use: Never Used Second Hand Smoke Exposure: No Substance Use Type: Marijuana Advance Directives: No Advance Directives Information Provided: No service: No Current occupational status: employed 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 Soft tissue swelling of the lateral malleolus ankle mortise intact good range of movement neurovascular intact Medications Administered Discontinued Medications Generic Name Dose Route Start Last Admin Trade Name Freq PRN Reason Stop Dose Admin Ibuprofen 600 mg 06/19/25 23:26 06/19/25 23:38 Ibuprofen 600 Mg Tablet PO 06/19/25 23:27 600 mg ONCE ONE Administration Medical Decision Making Medical Decision Making [facility] Narrative: Patient with minor ankle sprain patient has had old injury to the medial malleolus there is no tenderness at this time at that location soft tissue swelling is on the lateral malleolus likely the cause of the pain patient was given Robert wrap and crutches to ambulate Radiology Impression Discussion of test interpretation with radiology: I have reviewed the radiologist's reading. Radiologist Impression: [place] [id number] XRay Report Signed Patient: Araceli Avila MR#: [id number] : 1990 Acct:[id number] Age/Sex: 34 / F ADM Date: 06/19/25 Loc: HO.ED Attending Dr: Ordering Physician: Generic ED Physician Date of Service: 06/19/25 Procedure(s): XR ankle LT min 3V Accession Number(s): [id number] cc: Generic ED Physician; Elisabeth Higuera MD~ CLINICAL HISTORY: pain swelling s p fall 3 view left ankle Comparison: None provided Findings: Acute mildly displaced avulsion fracture of the medial malleolar tip. No significant arthritic change or erosions. No ankle effusion. No radiopaque foreign body. Moderate soft tissue swelling along the lateral malleolus. IMPRESSION: Acute mildly displaced avulsion fracture of the medial malleolar tip. This document has been electronically signed by: Brittany Caldera MD on 06/19/2025 22:03:16 Dictated By: Brittany Caldera MD Signed By: <Electronically signed by Brittany Caldera MD in [place]> 06/19/252203 DD/ 02 TD/TT: 06/19/252202 Lining Marker: Discharge Plan Discharge Clinical Impression: Ankle sprain and strain Patient Disposition: Home, Self-Care Instructions: Ankle Sprain (ED) Additional Instructions: Wear the Robert wrap for support Ibuprofen for pain Apply ice pack and keep your left leg elevated Crutches for help in ambulation Prescriptions: New ibuprofen 600 mg tablet 600 mg PO Q6H PRN (Reason: fever or pain) Qty: 30 0RF No Action bupropion HCl 150 mg tablet extended release 24 hr 150 mg PO DAILY cholecalciferol (vitamin D3) 25 mcg (1,000 unit) capsule 25 mcg PO DAILY loratadine [Claritin] 10 mg tablet 10 mg PO DAILY sertraline 50 mg tablet 50 mg PO DAILY Qty: 90 0RF mupirocin 2 % ointment 1 appl topical BID Qty: 50 1RF clindamycin phosphate 1 % gel 1 appl topical DAILY Qty: 60 0RF Interventions: ED Discharge Assessment Last Done: 06/20/25 00:04 Discharge Date/Time: 06/19/25 23:40 Print Language: Citizen Of [place]
[2025-06-20 00:04] VITALS: BP 120/69; PULSE 92; RESP 18; TEMP 36.9; O2SAT 96
== END 2025-06-19 23:40 | disposition home or self-care (01) ==
PROVIDERS: Emergency Provider Internal Medicine; PCP Internal Medicine
DX: S93.492A Sprain of other ligament of left ankle, initial encounter (principal); M25.472 Effusion, left ankle; X50.3XXA Overexertion from repetitive movements, initial encounter; Y93.75 Activity, martial arts; Y92.89 Other specified places as the place of occurrence of the external cause; Y99.8 Other external cause status
CPT/HCPCS: 73610; 99283

== ENCOUNTER → 2025-06-19 21:25 | Outpatient (BNV) | payer OTHER, SELFPAY | PROVIDERS: Emergency Provider Internal Medicine; PCP Internal Medicine; Visit Provider Student in an Organized Health Care Education/Training Program | DX: S82.52XA Displaced fracture of medial malleolus of left tibia, initial encounter for closed fracture (principal) | CPT/HCPCS: 73610 ==

== ENCOUNTER 2025-06-29 08:29 | Outpatient (REF) | payer OTHER, SELFPAY ==
[2025-06-29 10:44] LABS: Thyroid Stimulating Hormone 1.16 uIU/mL (0.32-4.0)
== END 2025-06-29 08:30 | disposition home or self-care (01) ==
LOC: HO.LAB 08:29
PROVIDERS: PCP Internal Medicine; Visit Provider Obstetrics & Gynecology
DX: N64.3 Galactorrhea not associated with childbirth (principal)
CPT/HCPCS: 36415; 84146; 84443